=== PATIENT | male | born 1950 | race Caucasian/White ===

== ENCOUNTER 2022-03-27 13:27 | Emergency (ER) | payer MEDICARE, OTHER ==
[2022-03-27] MEDS ORDERED: Lidocaine 1% 20 ML MDV ONE (13:45)
[2022-03-27] MEDS ORDERED: Boostrix 0.5 ML (Tdap) VIAL ONE (13:46)
== END 2022-03-27 14:20 | disposition home or self-care (01) ==
LOC: NAV ERS 13:27
DX: S81.811A Laceration without foreign body, right lower leg, initial encounter (principal); W26.8XXA Contact with other sharp object(s), not elsewhere classified, initial encounter; Z23 Encounter for immunization; I48.91 Unspecified atrial fibrillation; Z79.01 Long term (current) use of anticoagulants; Z79.899 Other long term (current) drug therapy
CPT/HCPCS: 12001; 90471; 90715